=== PATIENT | female | born 1960 | race Caucasian/White ===

== ENCOUNTER 2022-09-23 07:32 | Day surgery (SDC) | payer MEDICAID ==
[~2022-09-23 07:32] MED LIST: Bupivacaine 0.5% 30 ML SDV ONE; Lactated Ringers 1,000 ML IV SCH; Lidocaine 1%/Sod Bicarbonate in NS 8.4% 1 ML Syringe IDERM PRN; Sodium Chloride 0.9% 10 ML Syringe FLUSH PRN
[2022-09-23] MEDS ORDERED: Propofol 200 MG/20 ML SDV ONE (07:35)
[2022-09-23] MEDS ORDERED: Midazolam 1 MG/ML 2 ML SDV ONE (07:35)
[2022-09-23] MEDS ORDERED: fentaNYL 250 MCG/5 ML SDV ONE (07:35)
[2022-09-23] MEDS ORDERED: Lidocaine 1% 6 ML ONE (07:37)
[2022-09-23] MEDS ORDERED: Ondansetron 4 MG/2 ML SDV ONE (07:39)
[2022-09-23] MEDS ORDERED: Rocuronium 50 MG/5 ML Vial ONE (08:09)
[2022-09-23] MEDS ORDERED: Succinylcholine 200 MG/10 ML MDV ONE (08:15)
[2022-09-23] MEDS ORDERED: fentaNYL 100 MCG/2 ML SDV IVPUSH PRN (08:33)
[2022-09-23] MEDS ORDERED: HYDROmorphone 0.5 MG/0.5 ML Syringe IVPUSH PRN (08:33)
[2022-09-23] MEDS ORDERED: Neostigmine Methylsulfate 10 MG/10 ML MDV ONE (09:00)
[2022-09-23] MEDS ORDERED: Acetaminophen/oxyCODONE 325-5 MG Tab PO ONE (10:12)
== END 2022-09-23 12:20 | disposition home or self-care (01) ==
LOC: JD.SDS 07:32
PROVIDERS: ATTEND Obstetrics & Gynecology
DX: D27.0 Benign neoplasm of right ovary (principal); N73.6 Female pelvic peritoneal adhesions (postinfective); F41.9 Anxiety disorder, unspecified; G47.30 Sleep apnea, unspecified; M19.90 Unspecified osteoarthritis, unspecified site; J44.9 Chronic obstructive pulmonary disease, unspecified; F32.A Depression, unspecified; F17.200 Nicotine dependence, unspecified, uncomplicated; E78.00 Pure hypercholesterolemia, unspecified; Z98.890 Other specified postprocedural states; Z90.710 Acquired absence of both cervix and uterus; Z90.49 Acquired absence of other specified parts of digestive tract; Z88.6 Allergy status to analgesic agent; Z79.899 Other long term (current) drug therapy; Z79.82 Long term (current) use of aspirin
CPT/HCPCS: 36415; 58661; 80048; 85025; 86850; 86900; 86901; A9270; J0330; J1170; J2250; J2405; J2704; J2710; J3010; J3490; J7120; 00840

== ENCOUNTER 2022-12-23 07:50 | Day surgery (SDC) | payer MEDICAID ==
[2022-12-23] MEDS ORDERED: Propofol 200 MG/20 ML SDV ONE ×2 (07:53→09:43)
[2022-12-23] MEDS ORDERED: diphenhydrAMINE 50 MG/ML SDV ONE (07:54)
[2022-12-23] MEDS ORDERED: Ondansetron 4 MG/2 ML SDV ONE (07:54)
[2022-12-23] MEDS ORDERED: Midazolam 1 MG/ML 2 ML SDV ONE (07:54)
[2022-12-23] MEDS ORDERED: Lidocaine 1% 5 ML VIAL ONE (07:54)
[2022-12-23] MEDS ORDERED: Dexamethasone 4 MG/ML 5 ML MDV ONE (07:54)
[2022-12-23] MEDS ORDERED: fentaNYL 100 MCG/2 ML SDV ONE (07:54)
[2022-12-23] MEDS ORDERED: Rocuronium 50 MG/5 ML Vial ONE (07:54)
[2022-12-23] MEDS ORDERED: Lidocaine 1%/Sod Bicarbonate in NS 8.4% 1 ML Syringe IDERM PRN (07:55)
[2022-12-23] MEDS ORDERED: ceFAZolin 2 GM Vial ONE (07:56)
[2022-12-23] MEDS ORDERED: Lactated Ringers 1,000 ML IV SCH (08:00)
[2022-12-23] MEDS ORDERED: Albuterol 0.083% 2.5 MG/3 ML Neb Soln NEB ONE (08:05)
[2022-12-23] MEDS ORDERED: Bupivacaine 0.25%/EPINEPHrine 1:200,000 30 ML SDV ONE (08:26)
[2022-12-23] MEDS ORDERED: Sodium Chloride 0.9% 10 ML Syringe FLUSH SCH (09:00)
[2022-12-23] MEDS ORDERED: Lactated Ringers 1,000 ML ONE (09:01)
[2022-12-23] MEDS ORDERED: ePHEDrine 50 MG/ML SDV ONE (09:11)
[2022-12-23] MEDS ORDERED: Sodium Chloride 0.9% 100 ML ONE (09:13)
[2022-12-23] MEDS ORDERED: Dexmedetomidine 200 MCG/2 ML SDV ONE (09:13)
[2022-12-23] MEDS ORDERED: Phenylephrine HCl In 0.9% NaCl 1 MG/10 ML Vial ONE (09:25)
[2022-12-23] MEDS ORDERED: fentaNYL 100 MCG/2 ML SDV IVPUSH PRN (09:39)
[2022-12-23] MEDS ORDERED: HYDROmorphone 0.5 MG/0.5 ML Syringe IVPUSH PRN (09:39)
[2022-12-23] MEDS ORDERED: Ondansetron 4 MG/2 ML SDV IVPUSH PRN (09:51)
[2022-12-23] MEDS ORDERED: Acetaminophen 325 MG Tab PO PRN (09:51)
[2022-12-23] MEDS ORDERED: Sugammadex Sodium 200 MG/2 ML VIAL ONE (09:56)
== END 2022-12-23 12:12 | disposition home or self-care (01) ==
LOC: JD.SDS 07:50
PROVIDERS: ATTEND Obstetrics & Gynecology
DX: N81.6 Rectocele (principal); N93.9 Abnormal uterine and vaginal bleeding, unspecified; K21.9 Gastro-esophageal reflux disease without esophagitis; J44.9 Chronic obstructive pulmonary disease, unspecified; M79.7 Fibromyalgia; F41.9 Anxiety disorder, unspecified; F17.210 Nicotine dependence, cigarettes, uncomplicated; F32.A Depression, unspecified; G47.33 Obstructive sleep apnea (adult) (pediatric); E78.00 Pure hypercholesterolemia, unspecified; M19.90 Unspecified osteoarthritis, unspecified site; Z79.899 Other long term (current) drug therapy; Z88.6 Allergy status to analgesic agent; Z98.890 Other specified postprocedural states; E66.9 Obesity, unspecified
CPT/HCPCS: 00860; 36415; 81001; 85025; C1771; J0690; J1100; J1200; J2250; J2405; J2704; J3010; J3490; J7120; J7620-GY

== ENCOUNTER 2023-05-18 11:24 | Emergency (ER) | payer MEDICAID ==
[2023-05-18] MEDS ORDERED: Sodium Chloride 0.9% 10 ML Syringe FLUSH PRN (11:52)
[2023-05-18] MEDS ORDERED: Aspirin 81 MG Tab.EC PO ONE (11:57)
[2023-05-18 12:09] LABS: BASOPHILS ABSOLUTE AUTO 0.06 K/mm3 (0.01-0.08); BASOPHILS PERCENT AUTO 0.8 % (0.1-1.2); EOSINOPHILS PERCENT AUTO 1.3 (0.7-5.8); HEMATOCRIT 44.7 % (34.1-44.9); HEMOGLOBIN 14.7 gm/dl (11.2-15.7); IMMATURE GRAN ABSOLUTE AUTO 0.01 K/mm3 (0.00-0.10); IMMATURE GRAN PERCENT AUTO 0.1 % (<=1.0); LYMPHOCYTES PERCENT AUTO 28.8 % (19.3-51.7); MEAN CORPUSCULAR HEMOGLOBIN 31.9 pg (25.6-32.2); MEAN CORPUSCULAR HGB CONC 32.9 g/dl (32.2-35.5); MEAN PLATELET VOLUME 9.8 fl (9.4-12.3); MONOCYTES PERCENT AUTO 11.3 % (4.7-12.5); NEUTROPHILS ABSOLUTE AUTO 4.62 K/mm3 (1.56-6.13); NEUTROPHILS PERCENT AUTO 57.7 % (34.0-71.1); PLATELET COUNT,PLT 307 K/mm3 (182-369); RED BLOOD CELL COUNT 4.61 M/mm3 (3.98-5.22); WHITE BLOOD CELL COUNT,WBC 7.99 K/mm3 (3.98-10.04)
[2023-05-18 12:15] LABS: INR 0.98; PROTHROMBIN TIME 10.5 SECONDS (9.7-12.0)
[2023-05-18 12:17] LABS: PTT,PARTIAL THROMBOPLSTIN TIME 25.4 SECONDS (21.7-31.4)
[2023-05-18 12:27] LABS: ALBUMIN 3.7 g/dl (3.4-5.0); ANION GAP 12.2 (5-15); BILIRUBIN TOTAL 0.3 mg/dL (0.2-1.0); BUN/CREATININE RATIO 17.8 (14-18); CREATININE 0.9 mg/dL (0.55-1.02); EST CRCL DRUG DOSING (CG) 54.53 mL/min; MAGNESIUM 2.2 mg/dL (1.8-2.4); POTASSIUM,K 4.2 mEq/L (3.5-5.1); PROTEIN TOTAL,TP 7.5 g/dl (6.4-8.2); TSH 0.696 uIU/mL (0.358-3.74)
== END 2023-05-18 14:36 | disposition home or self-care (01) ==
LOC: JD.ED 11:24
DX: R07.89 Other chest pain (principal); E78.00 Pure hypercholesterolemia, unspecified; J44.9 Chronic obstructive pulmonary disease, unspecified; K21.9 Gastro-esophageal reflux disease without esophagitis; M19.90 Unspecified osteoarthritis, unspecified site; F17.210 Nicotine dependence, cigarettes, uncomplicated; E66.9 Obesity, unspecified; Z68.38 Body mass index [BMI] 38.0-38.9, adult; Z71.6 Tobacco abuse counseling; Z88.1 Allergy status to other antibiotic agents; Z88.6 Allergy status to analgesic agent; Z79.82 Long term (current) use of aspirin; Z79.899 Other long term (current) drug therapy
CPT/HCPCS: 36415; 71045; 80053; 83735; 83880; 84443; 84484; 85025; 85610; 85730; 93005; 99285; A9270; J3490; 93010; 99283

== ENCOUNTER 2023-06-08 08:14 | Day surgery (SDC) | payer MEDICAID ==
[~2023-06-08 08:14] MED LIST changes: -Bupivacaine 0.5% 30 ML SDV ONE; +Levalbuterol HCl 1.25 MG/3 ML Neb NEB PRN; -Lidocaine 1%/Sod Bicarbonate in NS 8.4% 1 ML Syringe IDERM PRN; +Sodium Chloride 0.9% 10 ML Syringe FLUSH SCH
[2023-06-08] MEDS ORDERED: Propofol 200 MG/20 ML SDV ONE (08:21)
[2023-06-08] MEDS ORDERED: Lactated Ringers 1,000 ML ONE (08:21)
[2023-06-08] MEDS ORDERED: Dexamethasone 4 MG/ML SDV ONE (08:21)
[2023-06-08] MEDS ORDERED: Midazolam 1 MG/ML 2 ML SDV ONE (08:22)
[2023-06-08] MEDS ORDERED: fentaNYL 100 MCG/2 ML SDV ONE (08:22)
[2023-06-08] MEDS ORDERED: Albuterol 0.083% 2.5 MG/3 ML Neb Soln ONE (08:32)
[2023-06-08] MEDS ORDERED: Ondansetron 4 MG/2 ML SDV IVPUSH PRN (09:44)
[2023-06-08] MEDS ORDERED: Albuterol 0.083% 2.5 MG/3 ML Neb Soln NEB PRN (09:44)
== END 2023-06-08 11:17 | disposition home or self-care (01) ==
LOC: JD.SDS 08:14
PROVIDERS: ATTEND Surgery
DX: D12.3 Benign neoplasm of transverse colon (principal); D12.2 Benign neoplasm of ascending colon; K29.70 Gastritis, unspecified, without bleeding; K29.80 Duodenitis without bleeding; K44.9 Diaphragmatic hernia without obstruction or gangrene; K64.9 Unspecified hemorrhoids; G47.33 Obstructive sleep apnea (adult) (pediatric); F41.1 Generalized anxiety disorder; G47.00 Insomnia, unspecified; M79.7 Fibromyalgia; J44.9 Chronic obstructive pulmonary disease, unspecified; M17.9 Osteoarthritis of knee, unspecified; G89.4 Chronic pain syndrome; E78.5 Hyperlipidemia, unspecified; E66.9 Obesity, unspecified; F17.210 Nicotine dependence, cigarettes, uncomplicated; Z90.721 Acquired absence of ovaries, unilateral; Z79.82 Long term (current) use of aspirin; Z79.899 Other long term (current) drug therapy; Z79.891 Long term (current) use of opiate analgesic; Z88.8 Allergy status to other drugs, medicaments and biological substances; Z68.38 Body mass index [BMI] 38.0-38.9, adult
CPT/HCPCS: 43239; 45380; J1100; J2250; J2704; J3010; J7120; 00813; J7620-GY